=== PATIENT | female | born 1950 | race Two or more races ===

== ENCOUNTER 2018-12-21 07:05 | Day surgery (SDC) | payer OTHER ==
[2018-12-21 07:56] LABS: ADD MAN DIFF? NO
[2018-12-21 07:58] LABS: BASOPHILS % 0.6 % (0.0-2.0); EOSINOPHILS # 0.3 10^3/ul (0.0-0.5); HEMATOCRIT 36.2 % (37.0-47.0); HEMOGLOBIN 11.9 g/dl (12.0-16.0); LYMPHOCYTES % 47.9 % (15.0-51.0); MEAN CORPUSCULAR HEMOGLOBIN 25.9 pg (29.0-33.0); MEAN CORPUSCULAR HGB CONC 32.9 g/dl (32.0-37.0); MEAN CORPUSCULAR VOLUME 78.9 fl (82.0-101.0); MEAN PLATELET VOLUME 9.2 fl (7.4-10.4); MONOCYTE # 0.5 10^3/ul (0.3-0.9); MONOCYTES % 8.5 % (0.0-11.0); NEUTROPHIL # 2.3 10^3/ul (1.6-7.5); NEUTROPHILS % 37.7 % (39.0-77.0); PLATELET COUNT 406 10^3/UL (140-415); RED BLOOD COUNT 4.59 10^6/ul (4.20-5.40); RED CELL DISTRIBUTION WIDTH 13.3 % (11.5-14.5)
[2018-12-21 07:58] LABS: WHITE BLOOD COUNT 6.2 10^3/ul (4.8-10.8)
[2018-12-21 08:17] LABS: INR 0.83; PROTIME 11.5 Sec (11.9-14.9); PT RATIO 0.9
[2018-12-21 08:21] LABS: ANION GAP 13 (5-13); CARBON DIOXIDE 29 mmol/L (21-31); CHLORIDE 97 mmol/L (97-110); CREATININE 0.78 mg/dl (0.44-1.00); Estimated GFR > 60 mL/min (>60); GLUCOSE 157 mg/dl (70-220); POTASSIUM 3.9 mmol/L (3.5-5.1); SODIUM 139 mmol/L (135-144)
[2018-12-21 08:23] LABS: BLOOD UREA NITROGEN 24 mg/dl (7-20)
[2018-12-21] MEDS ORDERED: IODIXANOL LOCM 100 ML BTL (08:51)
[2018-12-21] MEDS ORDERED: LIDOCAINE 1% (MDV) 20 ML INJ (08:51)
[2018-12-21] MEDS ORDERED: HEPARIN 1000 UNITS/ML 10 ML INJ (08:51)
[2018-12-21] MEDS ORDERED: MIDAZOLAM 1 MG/ML 2 ML INJ (08:52)
[2018-12-21] MEDS ORDERED: VERAPAMIL 5 MG INJ (08:52)
[2018-12-21] MEDS ORDERED: FENTAnyl 50 MCG/ML VIAL (08:52)
[2018-12-21] MEDS ORDERED: NITROGLYCERIN (IC) 100 MCG/ML INJ (08:52)
[2018-12-21] MEDS ORDERED: SOD CHLORIDE 0.9% 1,000 ML IV (09:50)
== END 2018-12-21 12:33 | disposition home or self-care (01) ==
LOC: SDS 07:05
DX: I25.10 Atherosclerotic heart disease of native coronary artery without angina pectoris (principal)
CPT/HCPCS: 80048; 82962; 85025; 85610; 93005; 93454